=== PATIENT | male | born 1980 | race Caucasian/White ===

== ENCOUNTER 2017-09-22 05:25 | Inpatient (IN) | payer OTHER ==
[2017-09-22] MEDS ORDERED: SURGIFOAM POWDER 1 GM KIT (06:50)
[2017-09-22] MEDS ORDERED: BUPIVACAINE 0.25% (MPF) 30 ML INJ (06:51)
[2017-09-22] MEDS ORDERED: FENTAnyl 50 MCG/ML VIAL (07:13)
[2017-09-22] MEDS ORDERED: HEPARIN 1000 UNITS/ML 10 ML INJ (07:28)
[2017-09-22] MEDS ORDERED: PROPOFOL 40 ML (07:53)
[2017-09-22] MEDS ORDERED: SUCCINYLCHOLINE CHLORIDE 100 MG/5 ML SYG IV (07:53)
[2017-09-22] MEDS ORDERED: SUGAMMADEX SODIUM 200 MG/2 ML VIAL IV ×2 (07:53→09:24)
[2017-09-22] MEDS ORDERED: CEFAZOLIN 1 GM INJ (07:53)
[2017-09-22] MEDS ORDERED: ROCURONIUM 50 MG INJ (07:53)
[2017-09-22] MEDS ORDERED: LIDOCAINE 100 MG SYRINGE (07:53)
[2017-09-22] MEDS ORDERED: PHENYLephrine (100 MCG/ML) 5ML SYG ×2 (08:19→08:39)
[2017-09-22] MEDS: BUPIVACAINE 0.25%/EPI (MDV) 50 ML VIAL INJ (08:24)
[2017-09-22] MEDS: CA CHLORIDE 10% 10 ML SYRINGE (08:25)
[2017-09-22] MEDS: POLYMYXIN/BACITRACIN 1L IRRIG (08:27)
[2017-09-22] MEDS: HEPARIN 1000 UNITS/ML 10 ML INJ (08:27)
[2017-09-22] MEDS: THROMBIN 5000 UNIT VIAL (08:29)
[2017-09-22] MEDS: GELATIN SIZE 100 SPONGE TOP (08:29)
[2017-09-22] MEDS ORDERED: HYDROmorphONE 1 MG/5 ML IV SYRINGE IV ×3 (09:46→10:00)
[2017-09-22] MEDS: HYDROmorphONE 1 MG/5 ML IV SYRINGE IV ×4 (09:52→10:49)
[2017-09-22] MEDS ORDERED: ONDANSETRON 4 MG INJ (09:52)
[2017-09-22] MEDS: ONDANSETRON 4 MG INJ IV (09:54)
[2017-09-22] MEDS ORDERED: MEPERIDINE 25 MG INJ (09:58)
[2017-09-22] MEDS ORDERED: BISACODYL 10 MG SUPP PR (10:00)
[2017-09-22] MEDS ORDERED: DIPHENHYDRAMINE 50 MG INJ IV ×2 (10:00)
[2017-09-22] MEDS ORDERED: ZOLPIDEM 5 MG TAB PO (10:00)
[2017-09-22] MEDS ORDERED: ALBUTEROL 0.083% (NEB) 2.5 MG/3 ML AMP HHN (10:00)
[2017-09-22] MEDS: MEPERIDINE 25 MG INJ IV (10:00)
[2017-09-22] MEDS ORDERED: NALOXONE (0.4 MG/ML) INJ IV (10:00)
[2017-09-22] MEDS ORDERED: LABETALOL HCL 20MG INJ IV (10:00)
[2017-09-22] MEDS ORDERED: HYDROCODONE/APAP (10/325) TAB PO (10:00)
[2017-09-22] MEDS ORDERED: FENTAnyl 50 MCG/ML VIAL IV ×2 (10:00)
[2017-09-22] MEDS ORDERED: ACETAMINOPHEN 325 MG TAB PO (10:00)
[2017-09-22] MEDS ORDERED: METOCLOPRAMIDE 10 MG INJ IV (10:00)
[2017-09-22] MEDS: CEFAZOLIN 1 GM/50 ML (PMX) 50 ML IVPB ×2 (10:22→18:10)
[2017-09-22] MEDS: HYDROmorphONE 0.2 MG/ML PCA IV ×2 (10:30→19:44)
[2017-09-22] MEDS: FENTAnyl 50 MCG/ML VIAL IV ×2 (14:01→16:04)
[2017-09-22] MEDS ORDERED: METOCLOPRAMIDE 10 MG INJ (16:19)
[2017-09-22] MEDS: D5W-0.45 NACL + KCL 20 MEQ 1,000 ML IV ×2 (18:09→19:26)
[2017-09-22] MEDS: CYCLOBENZAPRINE 10 MG TAB PO ×2 (18:14→22:17)
[2017-09-22] MEDS: DOCUSATE SODIUM 100 MG CAP PO (20:33)
[2017-09-22] MEDS ORDERED: ORPHENADRINE CITRATE 100 MG PO (21:00)
[2017-09-22] MEDS: HYDROmorphONE 0.5 MG/0.5 ML SYG IV (22:36)
[2017-09-23] MEDS: HYDROmorphONE 0.2 MG/ML PCA IV (01:06)
[2017-09-23] MEDS: HYDROmorphONE 0.5 MG/0.5 ML SYG IV ×2 (01:15→05:33)
[2017-09-23] MEDS: CEFAZOLIN 1 GM/50 ML (PMX) 50 ML IVPB (01:17)
[2017-09-23] MEDS: D5W-0.45 NACL + KCL 20 MEQ 1,000 ML IV ×2 (05:33→15:33)
[2017-09-23 05:41] LABS: ADD MAN DIFF? NO
[2017-09-23 05:44] LABS: BASOPHILS % 0.1 % (0.0-2.0); EOSINOPHILS # 0.1 10^3/ul (0.0-0.5); EOSINOPHILS % 0.9 % (0.0-7.0); HEMATOCRIT 40.7 % (42.0-52.0); HEMOGLOBIN 13.2 g/dl (14.0-18.0); LYMPHOCYTES # 1.9 10^3/ul (0.8-2.9); LYMPHOCYTES % 15.4 % (15.0-51.0); MEAN CORPUSCULAR HEMOGLOBIN 28.9 pg (29.0-33.0); MEAN CORPUSCULAR HGB CONC 32.4 g/dl (32.0-37.0); MEAN CORPUSCULAR VOLUME 89.1 fl (82.0-101.0); MEAN PLATELET VOLUME 10.2 fl (7.4-10.4); MONOCYTE # 1.2 10^3/ul (0.3-0.9); MONOCYTES % 9.8 % (0.0-11.0); NEUTROPHILS % 73.4 % (39.0-77.0); PLATELET COUNT 214 10^3/UL (140-415); RED BLOOD COUNT 4.57 10^6/ul (4.70-6.10); RED CELL DISTRIBUTION WIDTH 13.3 % (11.5-14.5)
[2017-09-23 05:44] LABS: WHITE BLOOD COUNT 12.3 10^3/ul (4.8-10.8)
[2017-09-23 06:03] LABS: ANION GAP 11 (8-16); BLOOD UREA NITROGEN 8 mg/dl (7-20); CALCIUM 8.7 mg/dl (8.4-10.2); CARBON DIOXIDE 27 mmol/L (21-31); CHLORIDE 103 mmol/L (97-110); CREATININE 0.82 mg/dl (0.61-1.24); GLUCOSE 116 mg/dl (70-220); MAGNESIUM 1.9 mg/dl (1.7-2.5); POTASSIUM 3.9 mmol/L (3.5-5.1); SODIUM 137 mmol/L (135-144)
[2017-09-23] MEDS: HYDROCODONE/APAP (10/325) TAB PO ×2 (08:22→13:22)
[2017-09-23] MEDS: AMLODIPINE 10 MG TAB PO (08:30)
[2017-09-23] MEDS: BENAZEPRIL 40 MG TAB PO (08:30)
[2017-09-23] MEDS: DOCUSATE SODIUM 100 MG CAP PO ×2 (08:30→20:26)
[2017-09-23] MEDS: CYCLOBENZAPRINE 10 MG TAB PO ×2 (10:00→20:27)
[2017-09-23] MEDS: NITROGLYCERIN (SL) 0.4 MG TAB SL (11:56)
[2017-09-23 12:15] LABS: AADO2 Arterial 27.8 mmHg (7.0-24.0); Allen Test ACCEPTAB; Arterial Base Excess 2.5 mmol/L (-3.0-3); Arterial Blood Gas Oxygen Sat 95.3 mmHG (95.0-98.0); Arterial COHb 1.2 % (0.0-3.0); Arterial HCO3 27.2 mmol/L (22.0-26.0); Arterial MetHb 0.2 % (0.0-1.5); Arterial Total Hemglobin 14.6 g/dl (12.0-18.0); Arterial pCO2 42.2 mmhg (35-45); MODE ROOM AIR; Site Right Radial
[2017-09-23 12:44] LABS: TROPONIN-I < 0.010 ng/ml (0.000-0.120)
[2017-09-23] MEDS ORDERED: OXYCODONE/ACETAMINOPHEN (10/325) TAB PO (17:00)
[2017-09-23] MEDS: OXYCODONE/ACETAMINOPHEN (10/325) TAB PO ×2 (17:48→21:25)
[2017-09-23 19:05] LABS: TROPONIN-I < 0.010 ng/ml (0.000-0.120)
[2017-09-24] MEDS: D5W-0.45 NACL + KCL 20 MEQ 1,000 ML IV ×3 (01:33→21:33)
[2017-09-24] MEDS: OXYCODONE/ACETAMINOPHEN (10/325) TAB PO ×5 (02:21→19:58)
[2017-09-24] MEDS: CEPASTAT LOZENGE MT (04:19)
[2017-09-24] MEDS: DOCUSATE SODIUM 100 MG CAP PO ×2 (07:57→20:02)
[2017-09-24] MEDS: AMLODIPINE 10 MG TAB PO (07:58)
[2017-09-24] MEDS: BENAZEPRIL 40 MG TAB PO (07:58)
[2017-09-24] MEDS: CYCLOBENZAPRINE 10 MG TAB PO ×2 (09:16→17:46)
[2017-09-25] MEDS: AL HYDROX/MG HYDROX/SIMETH 30 ML CUP PO (00:02)
[2017-09-25] MEDS: OXYCODONE/ACETAMINOPHEN (10/325) TAB PO ×5 (00:03→16:31)
[2017-09-25] MEDS: ONDANSETRON 4 MG INJ IV (00:07)
[2017-09-25] MEDS: CYCLOBENZAPRINE 10 MG TAB PO (00:07)
[2017-09-25] MEDS: D5W-0.45 NACL + KCL 20 MEQ 1,000 ML IV (07:33)
[2017-09-25] MEDS: AMLODIPINE 10 MG TAB PO (08:19)
[2017-09-25] MEDS: BENAZEPRIL 40 MG TAB PO (08:19)
[2017-09-25] MEDS: KETOROLAC 30 MG INJ IV (08:19)
[2017-09-25] MEDS: DOCUSATE SODIUM 100 MG CAP PO (08:19)
== END 2017-09-25 17:30 | DRG 520 ==
LOC: REC 05:25 → MS1 09-23 22:00
PROC: 0SB40ZZ Excision of Lumbosacral Disc, Open Approach (ICD-10-PCS; principal; 2017-09-22 07:00)
PROC: 4A11X4G Monitoring of Peripheral Nervous Electrical Activity, Intraoperative, External Approach (ICD-10-PCS; 2017-09-22 07:00)
DX: M51.17 Intervertebral disc disorders with radiculopathy, lumbosacral region (principal); R07.9 Chest pain, unspecified; E66.01 Morbid (severe) obesity due to excess calories; G47.33 Obstructive sleep apnea (adult) (pediatric); Z68.38 Body mass index [BMI] 38.0-38.9, adult
CPT/HCPCS: 36600; 72020; 80048; 82803; 83735; 84484; 85025; 86999; 93005; 93306; 93970; 94660; 97110; 97116; 97162; 97530

== ENCOUNTER 2017-09-25 17:41 | Inpatient (IN) | payer OTHER ==
[2017-09-25] MEDS ORDERED: ACETAMINOPHEN 325 MG TAB PO ×2 (18:30)
[2017-09-25] MEDS ORDERED: BISACODYL 10 MG SUPP PR (18:30)
[2017-09-25] MEDS ORDERED: AL HYDROX/MG HYDROX/SIMETH 30 ML CUP PO (19:00)
[2017-09-25] MEDS ORDERED: ZOLPIDEM 5 MG TAB PO (19:00)
[2017-09-25] MEDS ORDERED: CEPASTAT LOZENGE MT (19:00)
[2017-09-25] MEDS ORDERED: NITROGLYCERIN (SL) 0.4 MG TAB SL (19:00)
[2017-09-25] MEDS ORDERED: NALOXONE (0.4 MG/ML) INJ IV (19:00)
[2017-09-25] MEDS ORDERED: DIPHENHYDRAMINE 50 MG INJ IV (19:00)
[2017-09-25] MEDS: MAGNESIUM HYDROXIDE 30ML CUP PO (20:17)
[2017-09-25] MEDS: DOCUSATE SODIUM 100 MG CAP PO ×2 (20:17→21:00)
[2017-09-25] MEDS: SENNA TAB PO (20:17)
[2017-09-25] MEDS: OXYCODONE/ACETAMINOPHEN (10/325) TAB PO (20:18)
[2017-09-25 22:26] LABS: ADD UMIC NO; UR ASCORBIC ACID NEGATIVE (NEGATIVE); UR BILIRUBIN (Dip) NEGATIVE (NEGATIVE); UR BLOOD (Dip) NEGATIVE (NEGATIVE); UR CLARITY CLEAR (CLEAR); UR COLOR STRAW (YELLOW); UR GLUCOSE (Dip) NEGATIVE (NEGATIVE); UR KETONES (Dip) NEGATIVE (NEGATIVE); UR LEUKOCYTE ESTERASE (Dip) NEGATIVE Leu/ul (NEGATIVE); UR NITRITE (Dip) NEGATIVE (NEGATIVE); UR TOTAL PROTEIN (Dip) NEGATIVE (NEGATIVE); UR UROBILINOGEN (Dip) NEGATIVE (NEGATIVE)
[2017-09-26] MEDS: OXYCODONE/ACETAMINOPHEN (10/325) TAB PO ×6 (00:18→22:35)
[2017-09-26] MEDS: CYCLOBENZAPRINE 10 MG TAB PO (00:18)
[2017-09-26 06:48] LABS: ADD MAN DIFF? NO
[2017-09-26 06:50] LABS: BASOPHILS % 0.3 % (0.0-2.0); EOSINOPHILS # 0.3 10^3/ul (0.0-0.5); EOSINOPHILS % 3.8 % (0.0-7.0); HEMATOCRIT 41.3 % (42.0-52.0); HEMOGLOBIN 13.2 g/dl (14.0-18.0); LYMPHOCYTES # 2.2 10^3/ul (0.8-2.9); LYMPHOCYTES % 28.2 % (15.0-51.0); MEAN CORPUSCULAR HEMOGLOBIN 28.1 pg (29.0-33.0); MEAN CORPUSCULAR VOLUME 88.1 fl (82.0-101.0); MEAN PLATELET VOLUME 10.2 fl (7.4-10.4); MONOCYTE # 0.7 10^3/ul (0.3-0.9); MONOCYTES % 8.5 % (0.0-11.0); NEUTROPHIL # 4.5 10^3/ul (1.6-7.5); NEUTROPHILS % 58.9 % (39.0-77.0); PLATELET COUNT 286 10^3/UL (140-415); RED BLOOD COUNT 4.69 10^6/ul (4.70-6.10); RED CELL DISTRIBUTION WIDTH 12.9 % (11.5-14.5)
[2017-09-26 06:50] LABS: WHITE BLOOD COUNT 7.7 10^3/ul (4.8-10.8)
[2017-09-26 07:17] LABS: ALANINE AMINOTRANSFERASE 21 IU/L (13-69); ALBUMIN/GLOBULIN RATIO 1.17; ALKALINE PHOSPHATASE 70 IU/L (42-121); ANION GAP 13 (8-16); ASPARTATE AMINO TRANSFERASE 29 IU/L (15-46); BILIRUBIN,INDIRECT 0.5 mg/dl (0-1.1); BILIRUBIN,TOTAL 0.5 mg/dl (0.2-1.3); BLOOD UREA NITROGEN 14 mg/dl (7-20); CARBON DIOXIDE 33 mmol/L (21-31); CHLORIDE 100 mmol/L (97-110); CREATININE 1.01 mg/dl (0.61-1.24); GLUCOSE 103 mg/dl (70-220); POTASSIUM 3.6 mmol/L (3.5-5.1); SODIUM 142 mmol/L (135-144); TOTAL PROTEIN 7.4 g/dl (6.1-8.1)
[2017-09-26] MEDS: DOCUSATE SODIUM 100 MG CAP PO ×2 (10:28→20:54)
[2017-09-26] MEDS: BENAZEPRIL 40 MG TAB PO (10:29)
[2017-09-26] MEDS: AMLODIPINE 10 MG TAB PO (10:29)
[2017-09-26] MEDS: LACTULOSE 30ML CUP PO (10:36)
[2017-09-26] MEDS ORDERED: BISACODYL 10 MG SUPP PR (12:30)
[2017-09-26] MEDS: ENOXAPARIN 30 MG/0.3 ML SYG SC (14:48)
[2017-09-26] MEDS: METHYLNALTREXONE 12 MG/0.6 ML VIAL SC (18:40)
[2017-09-26] MEDS: BACLOFEN 10 MG TAB PO (20:53)
[2017-09-26] MEDS: SENNA TAB PO (20:54)
[2017-09-26] MEDS: NA PHOSPHATE/BIPHOS 133 ML ENEMA PR (21:57)
[2017-09-26] MEDS: BISACODYL 10 MG SUPP PR (22:13)
[2017-09-27] MEDS: OXYCODONE/ACETAMINOPHEN (10/325) TAB PO ×4 (04:23→19:44)
[2017-09-27] MEDS: BENAZEPRIL 40 MG TAB PO (09:33)
[2017-09-27] MEDS: DOCUSATE SODIUM 100 MG CAP PO ×2 (09:33→21:00)
[2017-09-27] MEDS: BACLOFEN 10 MG TAB PO ×2 (09:33→21:03)
[2017-09-27] MEDS: AMLODIPINE 10 MG TAB PO (09:34)
[2017-09-27] MEDS: ENOXAPARIN 30 MG/0.3 ML SYG SC (09:34)
[2017-09-27] MEDS: METHYLNALTREXONE 12 MG/0.6 ML VIAL SC (09:35)
[2017-09-27] MEDS: SENNA TAB PO (21:00)
[2017-09-27] MEDS: NITROFURANTOIN (SR) 100 MG CAP PO (21:03)
[2017-09-28] MEDS: OXYCODONE/ACETAMINOPHEN (10/325) TAB PO ×5 (02:47→20:47)
[2017-09-28] MEDS: BENAZEPRIL 40 MG TAB PO (09:12)
[2017-09-28] MEDS: DOCUSATE SODIUM 100 MG CAP PO ×2 (09:12→20:46)
[2017-09-28] MEDS: BACLOFEN 10 MG TAB PO ×3 (09:12→20:46)
[2017-09-28] MEDS: AMLODIPINE 10 MG TAB PO (09:13)
[2017-09-28] MEDS: NITROFURANTOIN (SR) 100 MG CAP PO (09:13)
[2017-09-28] MEDS: ENOXAPARIN 30 MG/0.3 ML SYG SC (10:06)
[2017-09-28] MEDS: METHYLNALTREXONE 12 MG/0.6 ML VIAL SC (10:06)
[2017-09-28] MEDS: CIPROFLOXACIN 500 MG TAB PO (18:50)
[2017-09-28] MEDS: SENNA TAB PO (20:46)
[2017-09-29] MEDS: OXYCODONE/ACETAMINOPHEN (10/325) TAB PO ×5 (02:26→22:20)
[2017-09-29] MEDS: CIPROFLOXACIN 500 MG TAB PO ×2 (06:27→18:03)
[2017-09-29] MEDS: AMLODIPINE 10 MG TAB PO (10:19)
[2017-09-29] MEDS: BACLOFEN 10 MG TAB PO ×3 (10:19→22:19)
[2017-09-29] MEDS: DOCUSATE SODIUM 100 MG CAP PO ×2 (10:19→22:19)
[2017-09-29] MEDS: BENAZEPRIL 40 MG TAB PO (10:20)
[2017-09-29] MEDS: ENOXAPARIN 30 MG/0.3 ML SYG SC (10:21)
[2017-09-29] MEDS: METHYLNALTREXONE 12 MG/0.6 ML VIAL SC (10:21)
[2017-09-29] MEDS: SENNA TAB PO (22:05)
[2017-09-30] MEDS: CIPROFLOXACIN 500 MG TAB PO ×2 (06:48→17:38)
[2017-09-30] MEDS: OXYCODONE/ACETAMINOPHEN (10/325) TAB PO ×4 (07:06→22:29)
[2017-09-30] MEDS: BACLOFEN 10 MG TAB PO ×3 (10:27→20:22)
[2017-09-30] MEDS: DOCUSATE SODIUM 100 MG CAP PO ×2 (10:27→20:22)
[2017-09-30] MEDS: METHYLNALTREXONE 12 MG/0.6 ML VIAL SC (10:28)
[2017-09-30] MEDS: AMLODIPINE 10 MG TAB PO (10:28)
[2017-09-30] MEDS: BENAZEPRIL 40 MG TAB PO (10:28)
[2017-09-30] MEDS: ENOXAPARIN 30 MG/0.3 ML SYG SC (10:29)
[2017-09-30] MEDS: SENNA TAB PO (20:22)
[2017-10-01] MEDS: OXYCODONE/ACETAMINOPHEN (10/325) TAB PO ×5 (02:30→22:37)
[2017-10-01] MEDS: CIPROFLOXACIN 500 MG TAB PO (06:31)
[2017-10-01] MEDS: LACTULOSE 30ML CUP PO (06:37)
[2017-10-01] MEDS: ONDANSETRON (ODT) 4 MG TAB ODT (08:17)
[2017-10-01] MEDS: DOCUSATE SODIUM 100 MG CAP PO ×2 (09:00→20:54)
[2017-10-01] MEDS: BENAZEPRIL 40 MG TAB PO (09:00)
[2017-10-01] MEDS: ENOXAPARIN 30 MG/0.3 ML SYG SC (09:00)
[2017-10-01] MEDS: BACLOFEN 10 MG TAB PO ×3 (09:00→20:37)
[2017-10-01] MEDS: DEXTROSE 5%-0.45% NACL 1,000 ML IV (10:25)
[2017-10-01] MEDS: METHYLNALTREXONE 12 MG/0.6 ML VIAL SC (10:26)
[2017-10-01] MEDS: METOCLOPRAMIDE 10 MG INJ IV (11:21)
[2017-10-01] MEDS: AMLODIPINE 10 MG TAB PO (11:28)
[2017-10-01 12:01] LABS: ADD MAN DIFF? NO
[2017-10-01 12:10] LABS: WHITE BLOOD COUNT 6.7 10^3/ul (4.8-10.8)
[2017-10-01 12:10] LABS: BASOPHILS % 0.3 % (0.0-2.0); EOSINOPHILS % 0.6 % (0.0-7.0); HEMATOCRIT 44.8 % (42.0-52.0); HEMOGLOBIN 14.8 g/dl (14.0-18.0); LYMPHOCYTES # 1.8 10^3/ul (0.8-2.9); LYMPHOCYTES % 26.4 % (15.0-51.0); MEAN CORPUSCULAR HEMOGLOBIN 28.4 pg (29.0-33.0); MEAN CORPUSCULAR VOLUME 85.8 fl (82.0-101.0); MEAN PLATELET VOLUME 9.6 fl (7.4-10.4); MONOCYTE # 0.5 10^3/ul (0.3-0.9); MONOCYTES % 7.7 % (0.0-11.0); NEUTROPHIL # 4.3 10^3/ul (1.6-7.5); NEUTROPHILS % 64.5 % (39.0-77.0); PLATELET COUNT 357 10^3/UL (140-415); RED BLOOD COUNT 5.22 10^6/ul (4.70-6.10); RED CELL DISTRIBUTION WIDTH 12.2 % (11.5-14.5)
[2017-10-01 12:38] LABS: ANION GAP 13 (8-16); BLOOD UREA NITROGEN 13 mg/dl (7-20); CALCIUM 9.7 mg/dl (8.4-10.2); CARBON DIOXIDE 25 mmol/L (21-31); CHLORIDE 106 mmol/L (97-110); CREATININE 0.89 mg/dl (0.61-1.24); GLUCOSE 122 mg/dl (70-220); POTASSIUM 3.6 mmol/L (3.5-5.1); SODIUM 140 mmol/L (135-144)
[2017-10-01] MEDS: MECLIZINE 25 MG TAB PO ×2 (18:08→22:39)
[2017-10-01] MEDS: TRIMETHOPRIM/SULFAMETHOX (DS) TAB GTB (20:37)
[2017-10-01] MEDS: SENNA TAB PO (20:54)
[2017-10-01] MEDS ORDERED: CIPROFLOXACIN 500 MG TAB PO (21:00)
[2017-10-02] MEDS: OXYCODONE/ACETAMINOPHEN (10/325) TAB PO ×3 (06:27→17:55)
[2017-10-02] MEDS: DEXTROSE 5%-0.45% NACL 1,000 ML IV (06:28)
[2017-10-02] MEDS: AMLODIPINE 10 MG TAB PO (08:11)
[2017-10-02] MEDS: TRIMETHOPRIM/SULFAMETHOX (DS) TAB GTB ×2 (08:11→20:45)
[2017-10-02] MEDS: BENAZEPRIL 40 MG TAB PO (08:11)
[2017-10-02] MEDS: DOCUSATE SODIUM 100 MG CAP PO ×2 (08:12→20:45)
[2017-10-02] MEDS: BACLOFEN 10 MG TAB PO ×3 (08:17→20:45)
[2017-10-02] MEDS: MECLIZINE 25 MG TAB PO ×2 (08:17→20:50)
[2017-10-02] MEDS: METHYLNALTREXONE 12 MG/0.6 ML VIAL SC (08:17)
[2017-10-02] MEDS: ENOXAPARIN 30 MG/0.3 ML SYG SC (08:18)
[2017-10-02] MEDS: SENNA TAB PO (20:45)
[2017-10-03] MEDS: OXYCODONE/ACETAMINOPHEN (10/325) TAB PO ×3 (01:26→16:52)
[2017-10-03] MEDS: TRIMETHOPRIM/SULFAMETHOX (DS) TAB GTB ×2 (10:11→21:21)
[2017-10-03] MEDS: METHYLNALTREXONE 12 MG/0.6 ML VIAL SC (10:11)
[2017-10-03] MEDS: DOCUSATE SODIUM 100 MG CAP PO ×2 (10:12→21:21)
[2017-10-03] MEDS: BACLOFEN 10 MG TAB PO ×3 (10:12→21:21)
[2017-10-03] MEDS: AMLODIPINE 10 MG TAB PO (10:13)
[2017-10-03] MEDS: BENAZEPRIL 40 MG TAB PO (10:13)
[2017-10-03] MEDS: ENOXAPARIN 30 MG/0.3 ML SYG SC (10:20)
[2017-10-03] MEDS: SENNA TAB PO (21:21)
[2017-10-04] MEDS: OXYCODONE/ACETAMINOPHEN (10/325) TAB PO ×3 (03:52→19:13)
[2017-10-04] MEDS: BACLOFEN 10 MG TAB PO ×3 (08:41→21:11)
[2017-10-04] MEDS: TRIMETHOPRIM/SULFAMETHOX (DS) TAB GTB ×2 (08:42→21:11)
[2017-10-04] MEDS: BENAZEPRIL 40 MG TAB PO (08:42)
[2017-10-04] MEDS: ENOXAPARIN 30 MG/0.3 ML SYG SC (08:42)
[2017-10-04] MEDS: DOCUSATE SODIUM 100 MG CAP PO ×2 (08:42→21:11)
[2017-10-04] MEDS: AMLODIPINE 10 MG TAB PO (08:42)
[2017-10-04] MEDS: METHYLNALTREXONE 12 MG/0.6 ML VIAL SC (08:43)
[2017-10-04] MEDS: SENNA TAB PO (21:11)
[2017-10-05] MEDS: ENOXAPARIN 30 MG/0.3 ML SYG SC (08:07)
[2017-10-05] MEDS: TRIMETHOPRIM/SULFAMETHOX (DS) TAB GTB ×2 (08:08→21:18)
[2017-10-05] MEDS: DOCUSATE SODIUM 100 MG CAP PO ×2 (08:08→21:18)
[2017-10-05] MEDS: BENAZEPRIL 40 MG TAB PO (08:08)
[2017-10-05] MEDS: AMLODIPINE 10 MG TAB PO (08:08)
[2017-10-05] MEDS: BACLOFEN 10 MG TAB PO ×3 (08:08→21:18)
[2017-10-05] MEDS: METHYLNALTREXONE 12 MG/0.6 ML VIAL SC (08:09)
[2017-10-05] MEDS: OXYCODONE/ACETAMINOPHEN (10/325) TAB PO ×3 (08:09→19:36)
[2017-10-05] MEDS: SENNA TAB PO (21:18)
[2017-10-06] MEDS: DEXAMETHASONE 10 MG/ML 1 ML INJ IV (00:56)
[2017-10-06] MEDS: DOCUSATE SODIUM 100 MG CAP PO ×2 (08:21→21:41)
[2017-10-06] MEDS: TRIMETHOPRIM/SULFAMETHOX (DS) TAB GTB ×2 (08:21→21:41)
[2017-10-06] MEDS: BACLOFEN 10 MG TAB PO ×3 (08:21→21:41)
[2017-10-06] MEDS: OXYCODONE/ACETAMINOPHEN (10/325) TAB PO ×3 (08:22→21:41)
[2017-10-06] MEDS: ENOXAPARIN 30 MG/0.3 ML SYG SC (08:24)
[2017-10-06] MEDS: AMLODIPINE 10 MG TAB PO (08:25)
[2017-10-06] MEDS: BENAZEPRIL 40 MG TAB PO (08:25)
[2017-10-06] MEDS: METHYLNALTREXONE 12 MG/0.6 ML VIAL SC (12:26)
[2017-10-06] MEDS: SENNA TAB PO (21:41)
[2017-10-07] MEDS: OXYCODONE/ACETAMINOPHEN (10/325) TAB PO ×4 (05:00→20:07)
[2017-10-07 07:53] LABS: CREATININE 1.01 mg/dl (0.61-1.24)
[2017-10-07 07:53] LABS: BLOOD UREA NITROGEN 21 mg/dl (7-20)
[2017-10-07] MEDS: AMLODIPINE 10 MG TAB PO (08:16)
[2017-10-07] MEDS: TRIMETHOPRIM/SULFAMETHOX (DS) TAB GTB ×2 (08:16→20:07)
[2017-10-07] MEDS: BACLOFEN 10 MG TAB PO ×3 (08:16→20:06)
[2017-10-07] MEDS: DOCUSATE SODIUM 100 MG CAP PO ×2 (08:16→20:07)
[2017-10-07] MEDS: BENAZEPRIL 40 MG TAB PO (08:16)
[2017-10-07] MEDS: METHYLNALTREXONE 12 MG/0.6 ML VIAL SC (08:17)
[2017-10-07 09:19] LABS: ADD MAN DIFF? NO
[2017-10-07 09:22] LABS: WHITE BLOOD COUNT 12.2 10^3/ul (4.8-10.8)
[2017-10-07 09:22] LABS: BASOPHILS % 0.2 % (0.0-2.0); EOSINOPHILS # 0.1 10^3/ul (0.0-0.5); EOSINOPHILS % 0.4 % (0.0-7.0); HEMATOCRIT 45.5 % (42.0-52.0); HEMOGLOBIN 14.9 g/dl (14.0-18.0); LYMPHOCYTES # 3.4 10^3/ul (0.8-2.9); LYMPHOCYTES % 27.5 % (15.0-51.0); MEAN CORPUSCULAR HEMOGLOBIN 28.2 pg (29.0-33.0); MEAN CORPUSCULAR HGB CONC 32.7 g/dl (32.0-37.0); MEAN PLATELET VOLUME 9.5 fl (7.4-10.4); MONOCYTE # 0.9 10^3/ul (0.3-0.9); MONOCYTES % 7.1 % (0.0-11.0); NEUTROPHIL # 7.9 10^3/ul (1.6-7.5); NEUTROPHILS % 64.3 % (39.0-77.0); PLATELET COUNT 354 10^3/UL (140-415); RED BLOOD COUNT 5.29 10^6/ul (4.70-6.10); RED CELL DISTRIBUTION WIDTH 12.9 % (11.5-14.5)
[2017-10-07 09:43] LABS: INR 1.01; PROTIME 13.4 Sec (11.9-14.9)
[2017-10-07 09:44] LABS: PARTIAL THROMBOPLASTIN TIME 27.3 Sec (25.0-35.0)
[2017-10-07 09:50] LABS: ALANINE AMINOTRANSFERASE 32 IU/L (13-69); ALBUMIN 4.8 g/dl (3.3-4.9); ALBUMIN/GLOBULIN RATIO 1.33; ALKALINE PHOSPHATASE 69 IU/L (42-121); ANION GAP 13 (8-16); ASPARTATE AMINO TRANSFERASE 24 IU/L (15-46); BILIRUBIN,INDIRECT 0.2 mg/dl (0-1.1); BILIRUBIN,TOTAL 0.2 mg/dl (0.2-1.3); BLOOD UREA NITROGEN 20 mg/dl (7-20); CALCIUM 9.7 mg/dl (8.4-10.2); CARBON DIOXIDE 28 mmol/L (21-31); CHLORIDE 102 mmol/L (97-110); CREATININE 1.16 mg/dl (0.61-1.24); GLUCOSE 103 mg/dl (70-220); POTASSIUM 3.9 mmol/L (3.5-5.1); SODIUM 139 mmol/L (135-144); TOTAL PROTEIN 8.4 g/dl (6.1-8.1)
[2017-10-07] MEDS: ONDANSETRON 4 MG INJ IV (10:27)
[2017-10-07] MEDS: SENNA TAB PO (20:07)
[2017-10-08] MEDS: LACTULOSE 30ML CUP PO (08:25)
[2017-10-08] MEDS: OXYCODONE/ACETAMINOPHEN (10/325) TAB PO ×3 (08:25→22:40)
[2017-10-08] MEDS: DOCUSATE SODIUM 100 MG CAP PO ×2 (08:25→21:33)
[2017-10-08] MEDS: BACLOFEN 10 MG TAB PO ×3 (08:26→21:34)
[2017-10-08] MEDS: BENAZEPRIL 40 MG TAB PO (08:26)
[2017-10-08] MEDS: METHYLNALTREXONE 12 MG/0.6 ML VIAL SC (08:27)
[2017-10-08] MEDS: TRIMETHOPRIM/SULFAMETHOX (DS) TAB GTB ×2 (08:27→21:33)
[2017-10-08] MEDS: AMLODIPINE 10 MG TAB PO (08:27)
[2017-10-08] MEDS: SENNA TAB PO (21:34)
[2017-10-09] MEDS: OXYCODONE/ACETAMINOPHEN (10/325) TAB PO ×3 (08:15→19:34)
[2017-10-09] MEDS: TRIMETHOPRIM/SULFAMETHOX (DS) TAB GTB (08:15)
[2017-10-09] MEDS: BACLOFEN 10 MG TAB PO ×3 (08:15→20:43)
[2017-10-09] MEDS: DOCUSATE SODIUM 100 MG CAP PO ×2 (08:16→20:44)
[2017-10-09] MEDS: BENAZEPRIL 40 MG TAB PO (08:16)
[2017-10-09] MEDS: LACTULOSE 30ML CUP PO (08:17)
[2017-10-09] MEDS: AMLODIPINE 10 MG TAB PO (08:17)
[2017-10-09] MEDS: METHYLNALTREXONE 12 MG/0.6 ML VIAL SC (08:17)
[2017-10-09] MEDS: ONDANSETRON 4 MG INJ IV (14:29)
[2017-10-09] MEDS: SENNA TAB PO (20:44)
[2017-10-10] MEDS: OXYCODONE/ACETAMINOPHEN (10/325) TAB PO ×4 (01:10→20:13)
[2017-10-10] MEDS: DOCUSATE SODIUM 100 MG CAP PO ×2 (08:34→20:12)
[2017-10-10] MEDS: AMLODIPINE 10 MG TAB PO (08:36)
[2017-10-10] MEDS: BACLOFEN 10 MG TAB PO ×3 (08:36→20:13)
[2017-10-10] MEDS: METHYLNALTREXONE 12 MG/0.6 ML VIAL SC (08:36)
[2017-10-10] MEDS: BENAZEPRIL 40 MG TAB PO (08:36)
[2017-10-10] MEDS: SENNA TAB PO (20:12)
[2017-10-11] MEDS: ONDANSETRON 4 MG INJ IV (00:50)
[2017-10-11] MEDS: AMLODIPINE 10 MG TAB PO (08:56)
[2017-10-11] MEDS: BACLOFEN 10 MG TAB PO ×3 (08:56→20:18)
[2017-10-11] MEDS: OXYCODONE/ACETAMINOPHEN (10/325) TAB PO ×3 (08:56→20:23)
[2017-10-11] MEDS: METHYLNALTREXONE 12 MG/0.6 ML VIAL SC (08:57)
[2017-10-11] MEDS: DOCUSATE SODIUM 100 MG CAP PO ×2 (08:57→20:18)
[2017-10-11] MEDS: METOCLOPRAMIDE 10 MG INJ IV (08:57)
[2017-10-11] MEDS: BENAZEPRIL 40 MG TAB PO (09:00)
[2017-10-11] MEDS: SENNA TAB PO (20:18)
[2017-10-12] MEDS: OXYCODONE/ACETAMINOPHEN (10/325) TAB PO ×4 (00:18→21:26)
[2017-10-12] MEDS: METHYLNALTREXONE 12 MG/0.6 ML VIAL SC (08:34)
[2017-10-12] MEDS: DOCUSATE SODIUM 100 MG CAP PO ×2 (08:34→21:24)
[2017-10-12] MEDS: BENAZEPRIL 40 MG TAB PO (08:34)
[2017-10-12] MEDS: BACLOFEN 10 MG TAB PO ×3 (08:35→21:24)
[2017-10-12] MEDS: AMLODIPINE 10 MG TAB PO (08:35)
[2017-10-12] MEDS: D5W-0.45 NACL + KCL 20 MEQ 1,000 ML IV (17:59)
[2017-10-12] MEDS: SENNA TAB PO (21:00)
[2017-10-13] MEDS: D5W-0.45 NACL + KCL 20 MEQ 1,000 ML IV ×3 (01:24→16:30)
[2017-10-13 06:52] LABS: ADD MAN DIFF? NO
[2017-10-13] MEDS ORDERED: SUCCINYLCHOLINE CHLORIDE 100 MG/5 ML SYG IV (07:00)
[2017-10-13] MEDS ORDERED: PROPOFOL 200 MG INJ (07:00)
[2017-10-13 07:14] LABS: BASOPHILS % 0.3 % (0.0-2.0); EOSINOPHILS # 0.1 10^3/ul (0.0-0.5); EOSINOPHILS % 1.5 % (0.0-7.0); HEMATOCRIT 40.5 % (42.0-52.0); HEMOGLOBIN 13.2 g/dl (14.0-18.0); IMMATURE GRANS #M 0.04 10^3/ul; IMMATURE GRANS % (M) 0.5 %; LYMPHOCYTES # 1.7 10^3/ul (0.8-2.9); LYMPHOCYTES % 21.6 % (15.0-51.0); MEAN CORPUSCULAR HEMOGLOBIN 28.8 pg (29.0-33.0); MEAN CORPUSCULAR HGB CONC 32.6 g/dl (32.0-37.0); MEAN CORPUSCULAR VOLUME 88.2 fl (82.0-101.0); MEAN PLATELET VOLUME 10.2 fl (7.4-10.4); MONOCYTE # 0.6 10^3/ul (0.3-0.9); MONOCYTES % 7.7 % (0.0-11.0); NEUTROPHIL # 5.5 10^3/ul (1.6-7.5); NEUTROPHILS % 68.4 % (39.0-77.0); PLATELET COUNT 242 10^3/UL (140-415); RED BLOOD COUNT 4.59 10^6/ul (4.70-6.10); RED CELL DISTRIBUTION WIDTH 12.4 % (11.5-14.5)
[2017-10-13 07:30] LABS: INR 1.01; PROTIME 13.4 Sec (11.9-14.9)
[2017-10-13 07:31] LABS: PARTIAL THROMBOPLASTIN TIME 28.5 Sec (25.0-35.0)
[2017-10-13 07:39] LABS: ANION GAP 13 (8-16); BLOOD UREA NITROGEN 14 mg/dl (7-20); CALCIUM 9.2 mg/dl (8.4-10.2); CARBON DIOXIDE 27 mmol/L (21-31); CHLORIDE 107 mmol/L (97-110); GLUCOSE 102 mg/dl (70-220); POTASSIUM 4.1 mmol/L (3.5-5.1); SODIUM 143 mmol/L (135-144)
[2017-10-13] MEDS: AMLODIPINE 10 MG TAB PO (09:00)
[2017-10-13] MEDS: DOCUSATE SODIUM 100 MG CAP PO ×2 (09:00→21:40)
[2017-10-13] MEDS: BACLOFEN 10 MG TAB PO ×3 (09:00→21:40)
[2017-10-13] MEDS: BENAZEPRIL 40 MG TAB PO (09:00)
[2017-10-13] MEDS: METHYLNALTREXONE 12 MG/0.6 ML VIAL SC (09:00)
[2017-10-13] MEDS: HYDROmorphONE 1 MG/ML SYG IV (12:07)
[2017-10-13] MEDS ORDERED: CYCLOBENZAPRINE 10 MG TAB PO (15:00)
[2017-10-13] MEDS ORDERED: ACETAMINOPHEN 325 MG TAB PO (15:00)
[2017-10-13] MEDS ORDERED: AL HYDROX/MG HYDROX/SIMETH 30 ML CUP PO (15:00)
[2017-10-13] MEDS: CEFAZOLIN 1 GM/50 ML (PMX) 50 ML IVPB ×2 (15:00→23:06)
[2017-10-13] MEDS ORDERED: CEPASTAT LOZENGE MT (15:00)
[2017-10-13] MEDS ORDERED: ZOLPIDEM 5 MG TAB PO (15:00)
[2017-10-13] MEDS ORDERED: BISACODYL 10 MG SUPP PR (15:00)
[2017-10-13] MEDS ORDERED: NALOXONE (0.4 MG/ML) INJ IV (15:00)
[2017-10-13] MEDS ORDERED: OXYCODONE/ACETAMINOPHEN (10/325) TAB PO (15:00)
[2017-10-13] MEDS ORDERED: HYDROmorphONE 0.5 MG/0.5 ML SYG IV (15:00)
[2017-10-13] MEDS ORDERED: ROCURONIUM 50 MG INJ (15:12)
[2017-10-13] MEDS ORDERED: GLYCOPYRROLATE 0.4 MG INJ (15:12)
[2017-10-13] MEDS ORDERED: CEFAZOLIN 1 GM INJ ×2 (15:12→17:55)
[2017-10-13] MEDS ORDERED: PROPOFOL 20 ML (15:12)
[2017-10-13] MEDS ORDERED: NEOSTIGMINE 3 MG/3 ML SYRINGE (15:12)
[2017-10-13] MEDS ORDERED: MIDAZOLAM 1 MG/ML 2 ML INJ (15:13)
[2017-10-13] MEDS ORDERED: ONDANSETRON 4 MG INJ (15:13)
[2017-10-13] MEDS ORDERED: DEXAMETHASONE 4 MG/ML 1 ML INJ (15:13)
[2017-10-13] MEDS ORDERED: SURGIFOAM POWDER 1 GM KIT (15:27)
[2017-10-13] MEDS ORDERED: BUPIVACAINE 0.25%/EPI (SDV) 30 ML INJ (15:27)
[2017-10-13] MEDS ORDERED: POLYMYXIN/BACITRACIN 1L IRRIG (15:28)
[2017-10-13] MEDS ORDERED: THROMBIN 5000 UNIT VIAL (15:28)
[2017-10-13] MEDS ORDERED: HEPARIN 1000 UNITS/ML 10 ML INJ (15:28)
[2017-10-13] MEDS ORDERED: CA CHLORIDE 10% 10 ML SYRINGE (15:28)
[2017-10-13] MEDS ORDERED: OXYCODONE/ACETAMINOPHEN (5/325) TAB PO ×2 (15:30)
[2017-10-13] MEDS ORDERED: IPRATROPIUM (NEB) 0.5 MG/2.5 ML AMP HHN (15:30)
[2017-10-13] MEDS ORDERED: TRIMETHOBENZAMIDE 100 MG/ML VIAL IM (15:30)
[2017-10-13] MEDS ORDERED: ALBUTEROL 0.083% (NEB) 2.5 MG/3 ML AMP HHN (15:30)
[2017-10-13] MEDS ORDERED: LABETALOL HCL 20MG INJ IV (15:30)
[2017-10-13] MEDS ORDERED: CEFAZOLIN 3 GM in SOD CHLORIDE 0.9% 100 ML IVPB (15:30)
[2017-10-13] MEDS ORDERED: FENTAnyl 50 MCG/ML VIAL IV ×3 (15:30)
[2017-10-13] MEDS ORDERED: ONDANSETRON 4 MG INJ IV (15:30)
[2017-10-13] MEDS ORDERED: MIDAZOLAM 1 MG/ML 2 ML INJ IV (15:30)
[2017-10-13] MEDS ORDERED: DIPHENHYDRAMINE 50 MG INJ IV (15:30)
[2017-10-13] MEDS ORDERED: EPHEDrine SULFATE 50 MG/5 ML SYG IV (15:30)
[2017-10-13] MEDS ORDERED: hydrALAzine 20 MG INJ IV (15:30)
[2017-10-13] MEDS ORDERED: LACTATED RINGER'S 1,000 ML IV* (16:00)
[2017-10-13] MEDS ORDERED: CEFAZOLIN 2 GM/50 ML (PMX) 50 ML IVPB ×2 (16:00→16:30)
[2017-10-13] MEDS ORDERED: GELATIN SIZE 100 SPONGE (17:11)
[2017-10-13] MEDS: BUPIVACAINE 0.25%/EPI (SDV) 30 ML INJ (17:12)
[2017-10-13] MEDS: THROMBIN 5000 UNIT VIAL (17:12)
[2017-10-13] MEDS: SURGIFOAM POWDER 1 GM KIT (17:12)
[2017-10-13] MEDS: HEPARIN 1000 UNITS/ML 10 ML INJ (17:12)
[2017-10-13] MEDS: POLYMYXIN/BACITRACIN 1L IRRIG (17:13)
[2017-10-13] MEDS: CA CHLORIDE 10% 10 ML SYRINGE (17:15)
[2017-10-13] MEDS ORDERED: SUGAMMADEX SODIUM 200 MG/2 ML VIAL IV (17:52)
[2017-10-13] MEDS ORDERED: FENTAnyl 50 MCG/ML VIAL (17:52)
[2017-10-13] MEDS: MEPERIDINE 25 MG INJ IV (18:30)
[2017-10-13] MEDS: HYDROmorphONE 1 MG/5 ML IV SYRINGE IV ×5 (18:33→19:04)
[2017-10-13] MEDS: ONDANSETRON 4 MG INJ IV (18:35)
[2017-10-13] MEDS: HYDROmorphONE 0.2 MG/ML PCA IV (18:50)
[2017-10-13] MEDS: DIPHENHYDRAMINE 50 MG INJ IV (18:52)
[2017-10-13] MEDS: SENNA TAB PO (21:40)
[2017-10-13] MEDS: 1/2 NS + KCL 20 MEQ 1,000 ML IV ×2 (23:25→23:26)
[2017-10-14] MEDS: D5W-0.45 NACL + KCL 20 MEQ 1,000 ML IV ×2 (00:12→08:30)
[2017-10-14 05:04] LABS: ADD MAN DIFF? NO
[2017-10-14 05:13] LABS: WHITE BLOOD COUNT 8.9 10^3/ul (4.8-10.8)
[2017-10-14 05:13] LABS: BASOPHILS % 0.1 % (0.0-2.0); HEMATOCRIT 38.7 % (42.0-52.0); HEMOGLOBIN 12.8 g/dl (14.0-18.0); IMMATURE GRANS #M 0.03 10^3/ul; IMMATURE GRANS % (M) 0.3 %; LYMPHOCYTES # 0.9 10^3/ul (0.8-2.9); LYMPHOCYTES % 10.5 % (15.0-51.0); MEAN CORPUSCULAR HEMOGLOBIN 28.5 pg (29.0-33.0); MEAN CORPUSCULAR HGB CONC 33.1 g/dl (32.0-37.0); MEAN CORPUSCULAR VOLUME 86.2 fl (82.0-101.0); MEAN PLATELET VOLUME 10.4 fl (7.4-10.4); MONOCYTE # 0.5 10^3/ul (0.3-0.9); MONOCYTES % 5.6 % (0.0-11.0); NEUTROPHIL # 7.4 10^3/ul (1.6-7.5); NEUTROPHILS % 83.5 % (39.0-77.0); PLATELET COUNT 281 10^3/UL (140-415); RED BLOOD COUNT 4.49 10^6/ul (4.70-6.10); RED CELL DISTRIBUTION WIDTH 12.1 % (11.5-14.5)
[2017-10-14 05:31] LABS: BLOOD UREA NITROGEN 17 mg/dl (7-20); CALCIUM 9.3 mg/dl (8.4-10.2); CARBON DIOXIDE 26 mmol/L (21-31); CHLORIDE 104 mmol/L (97-110); CREATININE 0.96 mg/dl (0.61-1.24); GLUCOSE 156 mg/dl (70-220); MAGNESIUM 1.9 mg/dl (1.7-2.5); SODIUM 142 mmol/L (135-144)
[2017-10-14 05:42] LABS: ANION GAP 16 (8-16); POTASSIUM 4.4 mmol/L (3.5-5.1)
[2017-10-14] MEDS: HYDROmorphONE 0.2 MG/ML PCA IV (05:56)
[2017-10-14] MEDS: CEFAZOLIN 1 GM/50 ML (PMX) 50 ML IVPB (06:12)
[2017-10-14] MEDS: BENAZEPRIL 40 MG TAB PO (08:38)
[2017-10-14] MEDS: AMLODIPINE 10 MG TAB PO (08:38)
[2017-10-14] MEDS: BACLOFEN 10 MG TAB PO ×2 (08:38→13:57)
[2017-10-14] MEDS: METHYLNALTREXONE 12 MG/0.6 ML VIAL SC (08:39)
[2017-10-14] MEDS: DOCUSATE SODIUM 100 MG CAP PO (08:39)
[2017-10-14] MEDS: 1/2 NS + KCL 20 MEQ 1,000 ML IV (10:22)
[2017-10-14] MEDS: OXYCODONE/ACETAMINOPHEN (10/325) TAB PO (11:23)
== END 2017-10-13 14:40 | disposition short-term general hospital (02) | DRG 560 ==
LOC: MS1 10-13 20:00 → VRC 17:41 → MS1 10-13 23:05 → VRC 10-13 20:00
DX: Z47.89 Encounter for other orthopedic aftercare (principal); N39.0 Urinary tract infection, site not specified; G89.18 Other acute postprocedural pain; R52 Pain, unspecified; K59.00 Constipation, unspecified; I10 Essential (primary) hypertension; Z74.09 Other reduced mobility; G47.33 Obstructive sleep apnea (adult) (pediatric); M62.838 Other muscle spasm; B96.89 Other specified bacterial agents as the cause of diseases classified elsewhere; M51.16 Intervertebral disc disorders with radiculopathy, lumbar region; M21.371 Foot drop, right foot; X58.XXXA Exposure to other specified factors, initial encounter; Y93.B9 Activity, other involving muscle strengthening exercises; Y92.239 Unspecified place in hospital as the place of occurrence of the external cause; E66.01 Morbid (severe) obesity due to excess calories; Z68.38 Body mass index [BMI] 38.0-38.9, adult
CPT/HCPCS: 71045; 72020; 72158; 80048; 80053; 81003; 82565; 83735; 84520; 85025; 85610; 85730; 86999; 87081; 87086; 93005; 93308; 93970; 94660; 97110; 97116; 97150; 97162; 97163; 97530; 97535

== ENCOUNTER 2017-10-13 14:40 | Inpatient (IN) | payer OTHER ==
[2017-10-14] MEDS ORDERED: BISACODYL 10 MG SUPP PR (15:00)
[2017-10-14] MEDS ORDERED: MECLIZINE 25 MG TAB PO (15:00)
[2017-10-14] MEDS ORDERED: DIPHENHYDRAMINE 50 MG INJ IV (15:00)
[2017-10-14] MEDS ORDERED: HYDROmorphONE 0.5 MG/0.5 ML SYG IV (15:00)
[2017-10-14] MEDS ORDERED: 1/2 NS + KCL 20 MEQ 1,000 ML IV (15:00)
[2017-10-14] MEDS ORDERED: NITROGLYCERIN (SL) 0.4 MG TAB SL (15:00)
[2017-10-14] MEDS: CEFAZOLIN 1 GM/50 ML (PMX) 50 ML IVPB (15:00)
[2017-10-14] MEDS ORDERED: CEPASTAT LOZENGE MT (15:00)
[2017-10-14] MEDS ORDERED: METOCLOPRAMIDE 10 MG INJ IV (15:00)
[2017-10-14] MEDS ORDERED: NALOXONE (0.4 MG/ML) INJ IV (15:00)
[2017-10-14] MEDS ORDERED: CYCLOBENZAPRINE 10 MG TAB PO (15:00)
[2017-10-14] MEDS ORDERED: ONDANSETRON (ODT) 4 MG TAB ODT (15:00)
[2017-10-14] MEDS ORDERED: ONDANSETRON 4 MG INJ IV (15:00)
[2017-10-14] MEDS ORDERED: ZOLPIDEM 5 MG TAB PO (15:00)
[2017-10-14] MEDS ORDERED: OXYCODONE/ACETAMINOPHEN (10/325) TAB PO (15:00)
[2017-10-14] MEDS: OXYCODONE/ACETAMINOPHEN (10/325) TAB PO ×2 (16:16→20:19)
[2017-10-14] MEDS: CEPHALEXIN 500 MG CAP PO (17:33)
[2017-10-14] MEDS: SENNA TAB PO (20:17)
[2017-10-14] MEDS: DOCUSATE SODIUM 100 MG CAP PO (20:17)
[2017-10-14] MEDS: BACLOFEN 10 MG TAB PO (20:17)
[2017-10-15] MEDS: OXYCODONE/ACETAMINOPHEN (10/325) TAB PO ×6 (00:33→21:37)
[2017-10-15] MEDS: AMLODIPINE 10 MG TAB PO (08:38)
[2017-10-15] MEDS: BENAZEPRIL 40 MG TAB PO (08:38)
[2017-10-15] MEDS: BACLOFEN 10 MG TAB PO ×3 (08:38→21:37)
[2017-10-15] MEDS: DOCUSATE SODIUM 100 MG CAP PO ×2 (08:38→21:37)
[2017-10-15] MEDS: METHYLNALTREXONE 12 MG/0.6 ML VIAL SC (08:39)
[2017-10-15] MEDS: SENNA TAB PO (21:37)
[2017-10-16] MEDS: OXYCODONE/ACETAMINOPHEN (10/325) TAB PO ×5 (05:28→21:53)
[2017-10-16] MEDS: LACTULOSE 30ML CUP PO ×2 (05:28→21:52)
[2017-10-16] MEDS: BENAZEPRIL 40 MG TAB PO (10:03)
[2017-10-16] MEDS: AMLODIPINE 10 MG TAB PO (10:04)
[2017-10-16] MEDS: DOCUSATE SODIUM 100 MG CAP PO ×2 (10:04→21:53)
[2017-10-16] MEDS: BACLOFEN 10 MG TAB PO ×3 (10:04→21:53)
[2017-10-16] MEDS: METHYLNALTREXONE 12 MG/0.6 ML VIAL SC (10:16)
[2017-10-16] MEDS: MAGNESIUM HYDROXIDE 30ML CUP PO (13:51)
[2017-10-16] MEDS: SENNA TAB PO (21:53)
[2017-10-17] MEDS: AL HYDROX/MG HYDROX/SIMETH 30 ML CUP PO (02:06)
[2017-10-17] MEDS: OXYCODONE/ACETAMINOPHEN (10/325) TAB PO ×4 (02:07→18:53)
[2017-10-17] MEDS: DOCUSATE SODIUM 100 MG CAP PO ×2 (08:26→20:11)
[2017-10-17] MEDS: AMLODIPINE 10 MG TAB PO (08:27)
[2017-10-17] MEDS: METHYLNALTREXONE 12 MG/0.6 ML VIAL SC (08:27)
[2017-10-17] MEDS: BENAZEPRIL 40 MG TAB PO (08:27)
[2017-10-17] MEDS: BACLOFEN 10 MG TAB PO ×3 (08:27→20:11)
[2017-10-17] MEDS: LACTULOSE 30ML CUP PO (17:29)
[2017-10-17] MEDS: SENNA TAB PO (20:11)
[2017-10-17] MEDS: NA PHOSPHATE/BIPHOS 133 ML ENEMA PR (20:12)
[2017-10-17] MEDS: ACETAMINOPHEN 325 MG TAB PO (21:34)
[2017-10-18] MEDS: OXYCODONE/ACETAMINOPHEN (10/325) TAB PO ×4 (01:53→20:25)
[2017-10-18] MEDS: BACLOFEN 10 MG TAB PO ×3 (09:45→20:24)
[2017-10-18] MEDS: DOCUSATE SODIUM 100 MG CAP PO ×2 (09:45→20:24)
[2017-10-18] MEDS: BENAZEPRIL 40 MG TAB PO (09:46)
[2017-10-18] MEDS: AMLODIPINE 10 MG TAB PO (09:46)
[2017-10-18] MEDS: METHYLNALTREXONE 12 MG/0.6 ML VIAL SC (09:47)
[2017-10-18] MEDS: HYDROmorphONE 2 MG TAB PO ×2 (13:02→18:44)
[2017-10-18] MEDS: LORAZEPAM 1 MG TAB PO ×2 (16:21→17:23)
[2017-10-18] MEDS: SENNA TAB PO (20:24)
[2017-10-19] MEDS: OXYCODONE/ACETAMINOPHEN (10/325) TAB PO ×4 (00:15→16:54)
[2017-10-19] MEDS: DOCUSATE SODIUM 100 MG CAP PO (09:07)
[2017-10-19] MEDS: AMLODIPINE 10 MG TAB PO (09:07)
[2017-10-19] MEDS: HYDROmorphONE 2 MG TAB PO (09:07)
[2017-10-19] MEDS: BENAZEPRIL 40 MG TAB PO (09:07)
[2017-10-19] MEDS: BACLOFEN 10 MG TAB PO ×2 (09:07→13:10)
[2017-10-19] MEDS: METHYLNALTREXONE 12 MG/0.6 ML VIAL SC (09:08)
== END 2017-10-19 18:50 | DRG 520 ==
LOC: MS1 14:40
PROC: 0SB20ZZ Excision of Lumbar Vertebral Disc, Open Approach (ICD-10-PCS; principal; 2017-10-13)
PROC: 4A11X4G Monitoring of Peripheral Nervous Electrical Activity, Intraoperative, External Approach (ICD-10-PCS; 2017-10-13)
DX: M51.16 Intervertebral disc disorders with radiculopathy, lumbar region (principal); E66.01 Morbid (severe) obesity due to excess calories; Z68.38 Body mass index [BMI] 38.0-38.9, adult; G47.30 Sleep apnea, unspecified; I10 Essential (primary) hypertension; R20.0 Anesthesia of skin; K59.00 Constipation, unspecified
CPT/HCPCS: 72020; 72158; 80048; 82607; 83735; 85025; 85610; 85730; 86999; 93971; 94660; 97110; 97116; 97162; 97530

== ENCOUNTER 2017-10-19 19:15 | Inpatient (IN) | payer OTHER ==
[2017-10-19] MEDS ORDERED: NITROGLYCERIN (SL) 0.4 MG TAB SL (22:18)
[2017-10-19] MEDS ORDERED: CEPASTAT LOZENGE MT (22:18)
[2017-10-19] MEDS ORDERED: MAGNESIUM HYDROXIDE 30ML CUP PO (22:18)
[2017-10-19] MEDS ORDERED: ONDANSETRON 4 MG INJ IV (22:18)
[2017-10-19] MEDS ORDERED: NA PHOSPHATE/BIPHOS 133 ML ENEMA PR (22:18)
[2017-10-19] MEDS ORDERED: CYCLOBENZAPRINE 10 MG TAB PO (22:18)
[2017-10-19] MEDS ORDERED: AL HYDROX/MG HYDROX/SIMETH 30 ML CUP PO (22:18)
[2017-10-19] MEDS ORDERED: ACETAMINOPHEN 325 MG TAB PO (22:18)
[2017-10-19] MEDS ORDERED: NALOXONE (0.4 MG/ML) INJ IV (22:18)
[2017-10-19] MEDS ORDERED: DIPHENHYDRAMINE 50 MG INJ IV (22:18)
[2017-10-19] MEDS ORDERED: METOCLOPRAMIDE 10 MG INJ IV (22:18)
[2017-10-19] MEDS: BACLOFEN 10 MG TAB PO (23:16)
[2017-10-19] MEDS: DOCUSATE SODIUM 100 MG CAP PO (23:17)
[2017-10-19] MEDS: OXYCODONE/ACETAMINOPHEN (10/325) TAB PO (23:18)
[2017-10-20 00:06] LABS: ADD UMIC NO; UR ASCORBIC ACID NEGATIVE (NEGATIVE); UR BILIRUBIN (Dip) NEGATIVE (NEGATIVE); UR BLOOD (Dip) NEGATIVE (NEGATIVE); UR CLARITY CLEAR (CLEAR); UR COLOR YELLOW (YELLOW); UR GLUCOSE (Dip) NEGATIVE (NEGATIVE); UR KETONES (Dip) NEGATIVE (NEGATIVE); UR LEUKOCYTE ESTERASE (Dip) NEGATIVE Leu/ul (NEGATIVE); UR NITRITE (Dip) NEGATIVE (NEGATIVE); UR SPECIFIC GRAVITY (Dip) 1.016 (1.003-1.030); UR TOTAL PROTEIN (Dip) NEGATIVE (NEGATIVE); UR UROBILINOGEN (Dip) NEGATIVE (NEGATIVE)
[2017-10-20 08:27] LABS: ADD MAN DIFF? NO
[2017-10-20 08:30] LABS: BASOPHILS % 0.2 % (0.0-2.0); EOSINOPHILS # 0.2 10^3/ul (0.0-0.5); EOSINOPHILS % 1.7 % (0.0-7.0); HEMOGLOBIN 13.2 g/dl (14.0-18.0); LYMPHOCYTES # 2.7 10^3/ul (0.8-2.9); LYMPHOCYTES % 26.8 % (15.0-51.0); MEAN CORPUSCULAR HEMOGLOBIN 28.4 pg (29.0-33.0); MEAN CORPUSCULAR VOLUME 86.2 fl (82.0-101.0); MEAN PLATELET VOLUME 10.2 fl (7.4-10.4); MONOCYTE # 0.8 10^3/ul (0.3-0.9); MONOCYTES % 8.2 % (0.0-11.0); NEUTROPHIL # 6.3 10^3/ul (1.6-7.5); NEUTROPHILS % 62.7 % (39.0-77.0); PLATELET COUNT 321 10^3/UL (140-415); RED BLOOD COUNT 4.64 10^6/ul (4.70-6.10); RED CELL DISTRIBUTION WIDTH 12.6 % (11.5-14.5)
[2017-10-20 08:30] LABS: WHITE BLOOD COUNT 10.1 10^3/ul (4.8-10.8)
[2017-10-20 08:56] LABS: ANION GAP 15 (8-16)
[2017-10-20 08:58] LABS: ALANINE AMINOTRANSFERASE 38 IU/L (13-69); ALBUMIN/GLOBULIN RATIO 1.08; ALKALINE PHOSPHATASE 71 IU/L (42-121); ASPARTATE AMINO TRANSFERASE 26 IU/L (15-46); BILIRUBIN,INDIRECT 0.2 mg/dl (0-1.1); BILIRUBIN,TOTAL 0.2 mg/dl (0.2-1.3); BLOOD UREA NITROGEN 15 mg/dl (7-20); CALCIUM 9.3 mg/dl (8.4-10.2); CARBON DIOXIDE 28 mmol/L (21-31); CHLORIDE 103 mmol/L (97-110); CREATININE 0.98 mg/dl (0.61-1.24); GLUCOSE 100 mg/dl (70-220); POTASSIUM 4.4 mmol/L (3.5-5.1); SODIUM 142 mmol/L (135-144); TOTAL PROTEIN 7.7 g/dl (6.1-8.1)
[2017-10-20] MEDS: AMLODIPINE 10 MG TAB PO (09:00)
[2017-10-20] MEDS: METHYLNALTREXONE 12 MG/0.6 ML VIAL SC (09:00)
[2017-10-20] MEDS: BENAZEPRIL 40 MG TAB PO (09:00)
[2017-10-20] MEDS: OXYCODONE/ACETAMINOPHEN (10/325) TAB PO ×4 (09:00→22:57)
[2017-10-20] MEDS: DOCUSATE SODIUM 100 MG CAP PO ×2 (09:09→21:15)
[2017-10-20] MEDS: BACLOFEN 10 MG TAB PO ×3 (09:09→21:15)
[2017-10-20] MEDS: LACTULOSE 30ML CUP PO (10:38)
[2017-10-20] MEDS: SENNA TAB PO (21:15)
[2017-10-20] MEDS: ZOLPIDEM 5 MG TAB PO (22:57)
[2017-10-21] MEDS: OXYCODONE/ACETAMINOPHEN (10/325) TAB PO ×5 (06:07→22:43)
[2017-10-21] MEDS: DOCUSATE SODIUM 100 MG CAP PO ×2 (08:38→21:14)
[2017-10-21] MEDS: AMLODIPINE 10 MG TAB PO (08:39)
[2017-10-21] MEDS: BENAZEPRIL 40 MG TAB PO (08:39)
[2017-10-21] MEDS: BACLOFEN 10 MG TAB PO ×4 (08:39→21:15)
[2017-10-21] MEDS: LACTULOSE 30ML CUP PO (08:39)
[2017-10-21] MEDS: METHYLNALTREXONE 12 MG/0.6 ML VIAL SC (08:42)
[2017-10-21] MEDS ORDERED: BACLOFEN 10 MG TAB PO (13:00)
[2017-10-21] MEDS: ENOXAPARIN 100 MG/ML SYG SC (18:41)
[2017-10-21] MEDS: SENNA TAB PO (21:14)
[2017-10-22] MEDS: ZOLPIDEM 5 MG TAB PO ×2 (01:16→02:19)
[2017-10-22] MEDS: OXYCODONE/ACETAMINOPHEN (10/325) TAB PO ×4 (06:37→19:24)
[2017-10-22] MEDS: BACLOFEN 10 MG TAB PO ×3 (08:43→21:42)
[2017-10-22] MEDS: AMLODIPINE 10 MG TAB PO (08:43)
[2017-10-22] MEDS: BISACODYL 10 MG SUPP PR (08:43)
[2017-10-22] MEDS: BENAZEPRIL 40 MG TAB PO (08:43)
[2017-10-22] MEDS: DOCUSATE SODIUM 100 MG CAP PO ×2 (08:43→21:40)
[2017-10-22] MEDS: ENOXAPARIN 100 MG/ML SYG SC (15:13)
[2017-10-22] MEDS: SENNA TAB PO (21:00)
[2017-10-23] MEDS: OXYCODONE/ACETAMINOPHEN (10/325) TAB PO ×4 (04:38→19:54)
[2017-10-23] MEDS: AMLODIPINE 10 MG TAB PO (09:28)
[2017-10-23] MEDS: DOCUSATE SODIUM 100 MG CAP PO ×2 (09:28→19:55)
[2017-10-23] MEDS: BACLOFEN 10 MG TAB PO ×3 (09:28→19:55)
[2017-10-23] MEDS: BENAZEPRIL 40 MG TAB PO (09:29)
[2017-10-23] MEDS: HYDROmorphONE 2 MG TAB PO (14:40)
[2017-10-23] MEDS: ENOXAPARIN 100 MG/ML SYG SC (17:36)
[2017-10-23] MEDS: SENNA TAB PO (19:55)
[2017-10-23] MEDS: ZOLPIDEM 5 MG TAB PO (22:40)
[2017-10-24] MEDS: OXYCODONE/ACETAMINOPHEN (10/325) TAB PO ×4 (05:08→23:53)
[2017-10-24] MEDS: HYDROmorphONE 2 MG TAB PO ×2 (07:28→21:02)
[2017-10-24] MEDS: DOCUSATE SODIUM 100 MG CAP PO ×2 (08:31→21:01)
[2017-10-24] MEDS: BENAZEPRIL 40 MG TAB PO (08:31)
[2017-10-24] MEDS: AMLODIPINE 10 MG TAB PO (08:31)
[2017-10-24] MEDS: BACLOFEN 10 MG TAB PO ×3 (08:31→21:01)
[2017-10-24] MEDS: LACTULOSE 30ML CUP PO (13:23)
[2017-10-24] MEDS: POLYETHYLENE GLYCOL 17 GM PACKET PO (16:49)
[2017-10-24] MEDS: ENOXAPARIN 100 MG/ML SYG SC (17:25)
[2017-10-24] MEDS: SENNA TAB PO (21:01)
[2017-10-24] MEDS: BISACODYL 10 MG SUPP PR (21:21)
[2017-10-25] MEDS: ZOLPIDEM 5 MG TAB PO (00:14)
[2017-10-25] MEDS: HYDROmorphONE 2 MG TAB PO ×4 (03:05→21:14)
[2017-10-25] MEDS: OXYCODONE/ACETAMINOPHEN (10/325) TAB PO ×5 (05:21→23:02)
[2017-10-25] MEDS: DOCUSATE SODIUM 100 MG CAP PO ×2 (08:28→21:13)
[2017-10-25] MEDS: ONDANSETRON (ODT) 4 MG TAB ODT (08:28)
[2017-10-25] MEDS: BACLOFEN 10 MG TAB PO ×3 (08:28→21:11)
[2017-10-25] MEDS: BENAZEPRIL 40 MG TAB PO (08:29)
[2017-10-25] MEDS: AMLODIPINE 10 MG TAB PO (08:31)
[2017-10-25] MEDS: POLYETHYLENE GLYCOL 17 GM PACKET PO (08:32)
[2017-10-25] MEDS: GABAPENTIN 400 MG CAP PO ×2 (13:08→21:13)
[2017-10-25] MEDS: ENOXAPARIN 100 MG/ML SYG SC (17:34)
[2017-10-25] MEDS: SENNA TAB PO (21:13)
[2017-10-26] MEDS: HYDROmorphONE 2 MG TAB PO ×4 (02:11→22:43)
[2017-10-26] MEDS: OXYCODONE/ACETAMINOPHEN (10/325) TAB PO ×4 (06:36→20:45)
[2017-10-26] MEDS: GABAPENTIN 400 MG CAP PO (08:19)
[2017-10-26] MEDS: MECLIZINE 25 MG TAB PO (08:19)
[2017-10-26] MEDS: DOCUSATE SODIUM 100 MG CAP PO ×2 (08:19→20:41)
[2017-10-26] MEDS: AMLODIPINE 10 MG TAB PO (08:19)
[2017-10-26] MEDS: BACLOFEN 10 MG TAB PO ×3 (08:20→20:41)
[2017-10-26] MEDS: BENAZEPRIL 40 MG TAB PO (08:20)
[2017-10-26] MEDS: POLYETHYLENE GLYCOL 17 GM PACKET PO (09:00)
[2017-10-26] MEDS ORDERED: GABAPENTIN 400 MG CAP PO (13:00)
[2017-10-26] MEDS: GABAPENTIN 100 MG CAP PO ×2 (13:24→20:41)
[2017-10-26] MEDS: ENOXAPARIN 100 MG/ML SYG SC (16:56)
[2017-10-26] MEDS: SENNA TAB PO (20:40)
[2017-10-27] MEDS: OXYCODONE/ACETAMINOPHEN (10/325) TAB PO ×3 (00:54→17:00)
[2017-10-27] MEDS: HYDROmorphONE 2 MG TAB PO ×2 (04:39→19:43)
[2017-10-27] MEDS: GABAPENTIN 100 MG CAP PO ×3 (07:58→20:11)
[2017-10-27] MEDS: BACLOFEN 10 MG TAB PO ×3 (07:58→20:11)
[2017-10-27] MEDS: POLYETHYLENE GLYCOL 17 GM PACKET PO (09:00)
[2017-10-27] MEDS: BENAZEPRIL 40 MG TAB PO (09:39)
[2017-10-27] MEDS: AMLODIPINE 10 MG TAB PO (09:39)
[2017-10-27] MEDS: DOCUSATE SODIUM 100 MG CAP PO ×2 (09:39→20:11)
[2017-10-27] MEDS: ENOXAPARIN 100 MG/ML SYG SC (17:04)
[2017-10-27] MEDS: ZOLPIDEM 5 MG TAB PO (20:11)
[2017-10-27] MEDS: SENNA TAB PO (20:11)
[2017-10-28] MEDS: OXYCODONE/ACETAMINOPHEN (10/325) TAB PO ×3 (00:36→20:50)
[2017-10-28] MEDS: HYDROmorphONE 2 MG TAB PO ×3 (07:19→22:35)
[2017-10-28] MEDS: BENAZEPRIL 40 MG TAB PO (08:06)
[2017-10-28] MEDS: GABAPENTIN 100 MG CAP PO ×3 (08:06→20:49)
[2017-10-28] MEDS: POLYETHYLENE GLYCOL 17 GM PACKET PO (08:06)
[2017-10-28] MEDS: BACLOFEN 10 MG TAB PO ×3 (08:07→20:49)
[2017-10-28] MEDS: AMLODIPINE 10 MG TAB PO (08:07)
[2017-10-28] MEDS: DOCUSATE SODIUM 100 MG CAP PO ×2 (08:07→20:49)
[2017-10-28] MEDS: ENOXAPARIN 100 MG/ML SYG SC (18:39)
[2017-10-28] MEDS: BISACODYL 10 MG SUPP PR (19:33)
[2017-10-28] MEDS: SENNA TAB PO (20:49)
[2017-10-28] MEDS: ZOLPIDEM 5 MG TAB PO (22:33)
[2017-10-29] MEDS: OXYCODONE/ACETAMINOPHEN (10/325) TAB PO ×2 (02:29→13:55)
[2017-10-29] MEDS: HYDROmorphONE 2 MG TAB PO ×2 (06:30→13:16)
[2017-10-29] MEDS: DOCUSATE SODIUM 100 MG CAP PO (08:14)
[2017-10-29] MEDS: AMLODIPINE 10 MG TAB PO (08:15)
[2017-10-29] MEDS: BACLOFEN 10 MG TAB PO ×2 (08:15→12:11)
[2017-10-29] MEDS: BENAZEPRIL 40 MG TAB PO (08:15)
[2017-10-29] MEDS: POLYETHYLENE GLYCOL 17 GM PACKET PO (08:16)
[2017-10-29] MEDS: GABAPENTIN 100 MG CAP PO ×2 (08:16→12:11)
[2017-10-29] MEDS: ENOXAPARIN 100 MG/ML SYG SC (17:30)
== END 2017-10-29 18:25 | disposition home health service (06) | DRG 945 ==
LOC: VRC 10-27 13:14
PROC: F07Z5ZZ Bed Mobility Treatment (ICD-10-PCS; principal; 2017-10-20)
PROC: F07Z8ZZ Transfer Training Treatment (ICD-10-PCS; 2017-10-20)
PROC: F08Z2ZZ Grooming/Personal Hygiene Treatment (ICD-10-PCS; 2017-10-20)
PROC: F08Z1ZZ Dressing Techniques Treatment (ICD-10-PCS; 2017-10-20)
PROC: F08Z0ZZ Bathing/Showering Techniques Treatment (ICD-10-PCS; 2017-10-20)
DX: G89.18 Other acute postprocedural pain (principal); M51.06 Intervertebral disc disorders with myelopathy, lumbar region; M54.5 Low back pain; I10 Essential (primary) hypertension; G47.33 Obstructive sleep apnea (adult) (pediatric); E78.5 Hyperlipidemia, unspecified; E66.09 Other obesity due to excess calories; M51.16 Intervertebral disc disorders with radiculopathy, lumbar region; K59.00 Constipation, unspecified; Z68.37 Body mass index [BMI] 37.0-37.9, adult; Z98.890 Other specified postprocedural states; Z87.828 Personal history of other (healed) physical injury and trauma
CPT/HCPCS: 80053; 81003; 85025; 87081; 87086; 93971; 94660; 97110; 97112; 97116; 97162; 97166; 97530; 97535